=== PATIENT | female | born 1960 | race Caucasian/White ===

== ENCOUNTER 2016-06-16 15:27 | Emergency (ER) | payer BC ==
[2016-06-16 16:37] VITALS: BP 122/79
--- NOTE | 2016-06-16 16:57 | UC ---
Throat Pain/Nasal Marvin HPI - HPI Summary HPI Summary: 2 day history of progressive sinus pressure, headache, fatigue and myalgias. Slept all day, with fever earlier in the day. Long history of asthma, has used albuterol 4 times in the past 24 hours, last several hours ago. History in the past of sinusitis. - History of Current Complaint Chief Complaint: UCGeneralIllness Stated Complaint: SINUS/CHILLS/FEVER Time Seen by Provider: 06/16/16 16:42 Hx Obtained From: Patient Hx Last Menstrual Period: HYTERECTOMY 2014 Onset/Duration: Sudden Onset, Lasting Days - 2 Cough: Productive Associated Signs & Symptoms: Positive: Wheezing, Sinus Discomfort - Epiglottits Risk Factors Epiglottis Risk Factors: Negative - Allergies/Home Medications Allergies/Adverse Reactions: Allergies Allergy/AdvReac Type Severity Reaction Status Date / Time Soy Allergy Allergy Intermediate diff Verified 06/16/16 16:37 breathing Many foods, environmental Allergy Hives Uncoded 06/16/16 16:37 PMH/Surg Hx/FS Hx/Imm Hx Endocrine History Of: Denies: Diabetes, Thyroid Disease, Hyperthyroidism, Hypothyroidism, Dyslipidemia Cardiovascular History Of: Denies: Cardiac Disorders, Hypertension Respiratory History Of: Reports: Asthma Denies: COPD, Bronchitis, Pneumonia, Pulmonary Embolism GI/ History Of: Denies: Gastroesophageal Reflux, Ulcer, Gastrointestinal Bleed, Gall Bladder Disease, Kidney Stones, Diverticulitis, Renal Disease, Urosepsis Neurological History Of: Denies: TIA, CVA, Dementia, Seizures, Migraine Psychological History Of: Denies: Anxiety, Depression, Bipolar Disorder, Schizophrenia, Post Traumatic Stress Disorder Cancer History Of: Denies: Lung Cancer, Colorectal Cancer, Breast Cancer, Prostate Cancer, Cervical Cancer - Surgical History Surgical History: Yes Surgery Procedure, Year, and Place: T&A, varicose vein surgery. D&C x 2. Hysterectomy - Family History Known Family History: Positive: Unknown - paternal hx unknown., Diabetes, Other - mother of endometrial or ovarian cancer age 56 - Social History Occupation: Employed Full-time - accounting Lives: With Family - with partner who just had open heart surgery Alcohol Use: Weekly Alcohol Amount: 30 pack beers Substance Use Type: None Smoking Status (MU): Heavy Every Day Tobacco Smoker - in process of quitting, has decreased from 1 ppd in the past several weeks. Type: Cigarettes Amount Used/How Often: 2-3 packs a week Length of Time of Smoking/Using Tobacco: 36 yrs Have You Smoked in the Last Year: Yes When Did the Patient Quit Smoking/Using Tobacco: 05/13/14 Household Exposure Type: Cigarettes - Immunization History Most Recent Influenza Vaccination: [id number] Review of Systems Constitutional: Fever, Fatigue Skin: Negative Eyes: Negative ENT: Sore Throat, Nasal Discharge Respiratory: Cough Cardiovascular: Negative Gastrointestinal: Negative Genitourinary: Negative Motor: Negative Neurovascular: Negative Musculoskeletal: Negative Neurological: Negative Psychological: Negative All Other Systems Reviewed And Are Negative: Yes Physical Exam Triage Information Reviewed: Yes Appearance: Ill-Appearing Vital Signs: Initial Vital Signs Temp 97.1 F 06/16/16 16:32 Pulse 87 06/16/16 16:32 Resp 18 06/16/16 16:32 BP 122/79 06/16/16 16:32 Pulse Ox 99 06/16/16 16:32 Eye Exam: Normal ENT: Positive: Pharyngeal erythema, TMs normal Dental Exam: Normal Neck: Positive: Supple, Nontender, Enlarged Nodes @ - anterior cervical Respiratory: Positive: Decreased breath sounds - to both bases, Wheezing - lower lung jones, prolonged expiration Cardiovascular: Positive: RRR, No Murmur Musculoskeletal Exam: Normal Neurological: Positive: Alert Psychological Exam: Normal Skin Exam: Normal Throat Pain/Nasal Course/Dx - Course Course Of Treatment: azithromycin for treatment of sinusitis. - Differential Dx/Diagnosis Differential Diagnosis/HQI/PQRI: Laryngitis, Sinusitis, URI Provider Diagnoses: acute maxillary sinusitis. Discharge - Discharge Plan Condition: Stable Disposition: HOME Prescriptions: Azithromyxin KRISH (NF) [Z-Krish (Zithromax) 250 mg tabs #6] 2 tab PO .TODAY, THEN 1 DAILY #6 tab Patient Education Materials: Sinusitis (ED) Additional Instructions: continue albuterol as needed for wheezing. use course of zithromax for treatment of sinusitis. Continue efforts at smokestopping.
== END 2016-06-16 17:13 | disposition home or self-care (01) ==
LOC: UCCORT 15:27
DX: J01.00 Acute maxillary sinusitis, unspecified (principal); F10.99 Alcohol use, unspecified with unspecified alcohol-induced disorder; F17.210 Nicotine dependence, cigarettes, uncomplicated
CPT/HCPCS: 99212; G0463

== ENCOUNTER 2016-12-24 14:00 | Emergency (ER) | payer BC ==
[2016-12-24 16:50] VITALS: BP 143/94
--- NOTE | 2016-12-24 17:02 | UC ---
Throat Pain/Nasal Marvin HPI - HPI Summary HPI Summary: Fever, sinus congestion ans pain, sore throat and cough for the past 5 days - History of Current Complaint Chief Complaint: UCGeneralIllness Stated Complaint: SINUS Time Seen by Provider: 12/24/16 16:52 Hx Obtained From: Patient Hx Last Menstrual Period: HYTERECTOMY 2014 Onset/Duration: Sudden Onset, Lasting Days Severity: Moderate Associated Signs & Symptoms: Positive: Sinus Discomfort, Nasal Discharge, Fever - Allergies/Home Medications Allergies/Adverse Reactions: Allergies Allergy/AdvReac Type Severity Reaction Status Date / Time Soy Allergy Allergy Intermediate diff Verified 06/16/16 16:37 breathing Many foods, environmental Allergy Hives Uncoded 06/16/16 16:37 Home Medications: Home Medications Fluticasone Propionate (Nasal) [ Fluticasone Propionate] 50 mcg NA DAILY PRN 12/24/16 [History Confirmed 12/24/16] Umeclidin 62.5 MDI(NF) [Incruse ELLIPTA MDI (NF)] 1 inh INH BEDTIME 12/24/16 [ History Confirmed 12/24/16] PMH/Surg Hx/FS Hx/Imm Hx Previously Healthy: Yes - Surgical History Surgical History: Yes Surgery Procedure, Year, and Place: T&A, varicose vein surgery. D&C x 2. Hysterectomy - Family History Known Family History: Positive: Unknown - paternal hx unknown., Diabetes, Other - mother of endometrial or ovarian cancer age 56 - Social History Alcohol Use: Daily Alcohol Amount: 30 pack beers Substance Use Type: None Smoking Status (MU): Heavy Every Day Tobacco Smoker Type: Cigarettes Amount Used/How Often: 1/2 PPD Length of Time of Smoking/Using Tobacco: 36 yrs Have You Smoked in the Last Year: Yes When Did the Patient Quit Smoking/Using Tobacco: 05/13/14 Household Exposure Type: Cigarettes - Immunization History Most Recent Influenza Vaccination: [id number] Review of Systems Constitutional: Fever, Chills, Fatigue Skin: Negative Eyes: Negative ENT: Sore Throat, Ear Ache, Nasal Discharge, Sinus Congestion, Sinus Pain/ Tenderness Respiratory: Cough Cardiovascular: Negative Gastrointestinal: Negative Genitourinary: Negative Motor: Negative Neurovascular: Negative Musculoskeletal: Negative Neurological: Negative Psychological: Negative All Other Systems Reviewed And Are Negative: Yes Physical Exam Triage Information Reviewed: Yes Appearance: Well-Nourished, Ill-Appearing, Pain Distress Vital Signs: Initial Vital Signs Temp 100 F 12/24/16 16:45 Pulse 121 12/24/16 16:45 Resp 18 12/24/16 16:45 BP 143/94 12/24/16 16:45 Pulse Ox 96 12/24/16 16:45 Vital Signs Reviewed: Yes Eyes: Positive: Conjunctiva Inflamed ENT: Positive: Pharyngeal erythema, Nasal congestion, Nasal drainage, Tonsillar swelling, Tonsillar exudate Dental Exam: Normal Neck exam: Normal Neck: Positive: Supple, Nontender, No Lymphadenopathy Respiratory Exam: Normal Respiratory: Positive: Chest non-tender, Normal breath sounds, Wheezing, Inspiration Cardiovascular Exam: Normal Cardiovascular: Positive: No Murmur, Pulses Normal, Tachycardia Abdominal Exam: Normal Abdomen Description: Positive: Nontender, No Organomegaly, Soft Bowel Sounds: Positive: Present Musculoskeletal Exam: Normal Musculoskeletal: Positive: Strength Intact, ROM Intact, No Edema Neurological Exam: Normal Neurological: Positive: Alert, Muscle Tone Normal Psychological Exam: Normal Skin Exam: Normal Throat Pain/Nasal Course/Dx - Course Course Of Treatment: hx obtained, exam performed ,meds reviewed, treaed for sinusitis - Differential Dx/Diagnosis Differential Diagnosis/HQI/PQRI: Pharyngitis, Sinusitis Provider Diagnoses: Sinusitis Discharge - Discharge Plan Condition: Stable Disposition: HOME Prescriptions: Azithromycin TAB* [Zithromax TAB (Z-KRISH) 250 mg #6 tabs] 2 tab PO .TODAY, THEN 1 DAILY #1 krish predniSONE TAB* [Deltasone TAB*] 40 mg PO DAILY #10 tab Patient Education Materials: Sinusitis (ED) Referrals: Pierre Blank MD [Medical Doctor] - Additional Instructions: 1. take the medication as prescribed. 2. Increase the fluid intake and get plenty of rest 3. Motrin and tylenol for pain and fever
== END 2016-12-24 17:16 | disposition home or self-care (01) ==
LOC: UCCORT 14:00
DX: J32.9 Chronic sinusitis, unspecified (principal)
CPT/HCPCS: 99212; G0463

== ENCOUNTER 2017-05-25 09:06 | Emergency (ER) | payer BC ==
[2017-05-25 10:52] VITALS: BP 137/78
--- NOTE | 2017-05-25 10:53 | UC ---
Throat Pain/Nasal Marvin HPI - HPI Summary HPI Summary: 56 year old female with sinus pressure and congestion . Has history of bronchitis and does smoke . she is asking for patches to quit smoking. mild wheeze and coughing. using albuterol at home and mild increase in use and has used 2 times in the past 24 hours. no CP. no syncope or vision changes. no body aches and states not having the flu - History of Current Complaint Stated Complaint: SINUS/CHEST CONGESTION FEVER CHILLS Time Seen by Provider: 05/25/17 10:36 Hx Obtained From: Patient Hx Last Menstrual Period: HYTERECTOMY 2014 Onset/Duration: Gradual Onset Cough: Productive Associated Signs & Symptoms: Positive: Wheezing - Allergies/Home Medications Allergies/Adverse Reactions: Allergies Allergy/AdvReac Type Severity Reaction Status Date / Time Soy Allergy Allergy Intermediate diff Verified 05/25/17 10:36 breathing Many foods, environmental Allergy Hives Uncoded 05/25/17 10:36 PMH/Surg Hx/FS Hx/Imm Hx Previously Healthy: Yes Respiratory History: COPD - Surgical History Surgical History: Yes Surgery Procedure, Year, and Place: T&A, varicose vein surgery. D&C x 2. Hysterectomy - Family History Known Family History: Positive: Unknown - paternal hx unknown., Diabetes, Other - mother of endometrial or ovarian cancer age 56 - Social History Alcohol Use: Daily Alcohol Amount: 30 pack beers Substance Use Type: None Smoking Status (MU): Heavy Every Day Tobacco Smoker Type: Cigarettes Amount Used/How Often: 1/2 PPD Length of Time of Smoking/Using Tobacco: 36 yrs Have You Smoked in the Last Year: Yes When Did the Patient Quit Smoking/Using Tobacco: 05/13/14 Household Exposure Type: Cigarettes Cessation Counseling: Patient Advised to Stop - Immunization History Most Recent Influenza Vaccination: [id number] Review of Systems Constitutional: Fatigue ENT: Sore Throat, Nasal Discharge, Sinus Congestion, Sinus Pain/Tenderness Respiratory: Cough Is Patient Immunocompromised?: No All Other Systems Reviewed And Are Negative: Yes Physical Exam Triage Information Reviewed: Yes Appearance: Well-Appearing, No Pain Distress, Well-Nourished Vital Signs Reviewed: Yes Eye Exam: Normal ENT Exam: Normal Respiratory Exam: Normal Respiratory: Positive: Chest non-tender, No respiratory distress, No accessory muscle use, Wheezing - LLL and RUL with expiration. Negative: Respiratory distress Cardiovascular Exam: Normal Neurological Exam: Normal Psychological Exam: Normal Skin Exam: Normal Throat Pain/Nasal Course/Dx - Course Course Of Treatment: advised to stop smoking. mild wheeze, do not think need steroid at this time. start doxy to shorten course of Sx. go to ED if Sx not improved - Differential Dx/Diagnosis Differential Diagnosis/HQI/PQRI: Pharyngitis, Sinusitis, URI Provider Diagnoses: COPD exacerbation Discharge - Discharge Plan Condition: Good Disposition: HOME Prescriptions: Doxycycline (Monohydrate) [Doxycycline Monohydrate] 100 mg PO BID #20 cap Ibuprofen TAB* [Motrin TAB* 600 MG] 600 mg PO Q6H PRN #60 tab PRN Reason: Pain Nicotine PATCH 21 MG/24 HR* 21 mg TRANSDERM DAILY #30 patch Patient Education Materials: Acute Bronchitis (ED), COPD (Chronic Obstructive Pulmonary Disease) (ED) Referrals: Cary Dietz PA [Primary Care Provider] - 4 Days
== END 2017-05-25 11:20 | disposition home or self-care (01) ==
LOC: UCCORT 09:06
DX: J44.1 Chronic obstructive pulmonary disease with (acute) exacerbation (principal); F17.210 Nicotine dependence, cigarettes, uncomplicated
CPT/HCPCS: 99211; G0463

== ENCOUNTER 2017-11-21 10:22 | Emergency (ER) | payer BC ==
[2017-11-21 10:58] VITALS: BP 115/56
--- NOTE | 2017-11-21 11:06 | UC ---
Lower Extremity/Ankle HPI - HPI Summary HPI Summary: 57 y/o female presents to the urgent care c/o R ankle pain and swelling s/p twisting ankle while coming out of the bathroom this morning at 0600AM. Pt states she can walk w/ limping. Pain is 6/10. She took Ibuprofen 400mg PO to alleviate symptoms. Pt denies numbness or tingling sensation, calf pain, SOB, chest pain, abdominal pain, N/V/D. Pt w/ Hx of Varicose veins and recently had injections on 11/07/2017. - History of Current Complaint Chief Complaint: UCLowerExtremity Stated Complaint: RT ANKLE INJURY Time Seen by Provider: 11/21/17 10:59 Hx Obtained From: Patient Hx Last Menstrual Period: HYTERECTOMY 2014 Onset/Duration: Sudden Onset, Lasting Hours - 4hrs Severity Initially: Moderate Severity Currently: Moderate Pain Intensity: 6 Pain Scale Used: 0-10 Numeric Aggravating Factor(s): Standing, Ambulation Alleviating Factor(s): Rest, Elevation, OTC Meds Able to Bear Weight: Yes - Risk Factors Gout Risk Factors: Negative DVT Risk Factors: Negative Septic Arthritis Risk Factor: Negative - Allergies/Home Medications Allergies/Adverse Reactions: Allergies Allergy/AdvReac Type Severity Reaction Status Date / Time soy Allergy Difficulty Verified 11/21/17 10:50 Breathing Many foods, environmental Allergy Hives Uncoded 05/25/17 10:36 PMH/Surg Hx/FS Hx/Imm Hx Previously Healthy: Yes Respiratory History: Asthma - Surgical History Surgical History: Yes Surgery Procedure, Year, and Place: T&A, varicose vein surgery. D&C x 2. Hysterectomy - Family History Known Family History: Positive: Unknown - paternal hx unknown., Diabetes Family History: mother of endometrial or ovarian cancer age 56 - Social History Occupation: Employed Full-time Lives: With Family Alcohol Use: Weekly Alcohol Amount: 30 pack beers weekly Substance Use Type: None Smoking Status (MU): Heavy Every Day Tobacco Smoker Type: Cigarettes Amount Used/How Often: 1/2 PPD Length of Time of Smoking/Using Tobacco: 36 yrs Have You Smoked in the Last Year: Yes When Did the Patient Quit Smoking/Using Tobacco: 05/13/14 Household Exposure Type: Cigarettes - Immunization History Most Recent Influenza Vaccination: [id number] Review of Systems Constitutional: Negative Skin: Negative Eyes: Negative ENT: Negative Respiratory: Negative Cardiovascular: Negative Gastrointestinal: Negative Genitourinary: Negative Motor: Negative Neurovascular: Negative Musculoskeletal: Decreased ROM - RT ankle, Other: - RT ankle pain s/p injury Neurological: Negative Psychological: Negative Is Patient Immunocompromised?: No All Other Systems Reviewed And Are Negative: Yes Physical Exam - Summary Physical Exam Summary: Vital Signs Reviewed: Yes General: well developed, well nourished female, sitting in the examining table w /o any apparent distress Eyes: Positive: Conjunctiva Clear - PERRLA, EOMI, ENT: Positive: Normal ENT inspection, Hearing grossly normal, Pharynx normal, TMs normal Neck: Positive: Supple, Nontender, No Lymphadenopathy Respiratory: Positive: Chest non-tender, Lungs clear, Normal breath sounds, No respiratory distress Cardiovascular: Positive: RRR, No Murmur, Pulses Normal, Brisk Capillary Refill Abdomen Description: Positive: Nontender, No Organomegaly, Soft. Negative: CVA Tenderness (R), CVA Tenderness (L) Bowel Sounds: Positive: Present Musculoskeletal: - Ankle: Pt is able to bear weight and ambulate w/ limping. The R ankle is without obvious asymmetry or deformity when compared to the L ankle. Decreased ROM due to pain. Moderate swelling at the lateral malleolus, with tenderness to palpation. No ecchymosis or bruising observed. No tenderness to palpation over the medial malleolus , no swelling observed. Talar tilt test is negative for ligament laxity to valgus or varus stress. Negative anterior drawer. Peroneal nerve is intact with strong eversion and plantar flexion. Positive sensation over the Rt foot and Rt ankle, positive pulses, capillary refill intact Neurological Exam: Normal Psychological Exam: Normal Skin: warm and dry Triage Information Reviewed: Yes Vital Signs: Initial Vital Signs Temp 99 F 11/21/17 10:52 Pulse 83 11/21/17 10:52 Resp 16 11/21/17 10:52 BP 115/56 11/21/17 10:52 Pulse Ox 98 11/21/17 10:52 Lower Extremity Course/Dx - Course Course Of Treatment: 57 y/o female presents to the urgent care c/o R ankle pain and swelling s/p twisting ankle while coming out of the bathroom this morning at 0600AM. Pt states she can walk w/ limping. Pain is 6/10. She took Ibuprofen 400mg PO to alleviate symptoms. Pt denies numbness or tingling sensation, calf pain, SOB, chest pain, abdominal pain, N/V/D. Pt w/ Hx of Varicose veins and recently had injections on 11/07/2017.Hx obtained. Rt ankle X -ray ordered, Impression: Mild Soft tissue swelling on lateral malleolus observed, no acute fracture. Pt most likely with a RT ankle Sprain. Pt immobilized with gel ankle splint and Ramo bandage, Rx Naproxen PO to decrease swelling and pain. Pt advised RICE, take Ibuprofen PO for pain and to f/u with PCP on orthopedic Dr Shell in 1 week if not improvement of symptoms for further treatment. Parents and Pt understood and agreed and left the clinic ambulating. - Differential Dx/Diagnosis Differential Diagnosis/HQI/PQRI: Contusion, Fracture (Closed), Sprain, Strain, Tendonitis Provider Diagnoses: 1- Rt ankle pain s/p injury. 2- Rt ankle sprain Discharge - Sign-Out/Discharge Documenting (check all that apply): Patient Departure - D/c home - Discharge Plan Condition: Stable Disposition: HOME Prescriptions: Naproxen TAB* [Naprosyn 250 mg TAB*] 250 mg PO Q8H PRN #30 tab PRN Reason: Pain Patient Education Materials: Ankle Sprain (ED) Referrals: Daphne Shell MD [Medical Doctor] - 1 Week Cary Dietz PA [Primary Care Provider] - 1 Week Additional Instructions: 1-Please take medications as directed after meals to alleviate pain and swelling. 2-Please apply ice, keep your ankle immobilized with the splint. Avoid weight bearing using your cane 3- Please f/u with Orthopedic Dr Shell or your PCP in 1 week is not improvement of symptoms for further evaluation and treatment. - Billing Disposition and Condition Condition: STABLE Disposition: Home
--- NOTE | 2017-11-21 11:29 | RAD ---
INDICATION: Right ankle pain COMPARISON: November 14, 2012 TECHNIQUE: AP, lateral, and oblique views were obtained. FINDINGS: There is no acute fracture. Ankle mortise is intact. There is mild lateral soft tissue swelling. IMPRESSION: MILD LATERAL SOFT TISSUE SWELLING.
== END 2017-11-21 11:44 | disposition home or self-care (01) ==
LOC: UCCORT 10:22
DX: S93.401A Sprain of unspecified ligament of right ankle, initial encounter (principal); X50.1XXA Overexertion from prolonged static or awkward postures, initial encounter; Y93.01 Activity, walking, marching and hiking; Y92.002 Bathroom of unspecified non-institutional (private) residence as the place of occurrence of the external cause; F17.210 Nicotine dependence, cigarettes, uncomplicated
CPT/HCPCS: 99213; G0463

== ENCOUNTER 2018-01-17 13:46 | Emergency (ER) | payer BC ==
[2018-01-17 15:14] VITALS: BP 135/84
--- NOTE | 2018-01-17 15:51 | UC ---
Head Injury HPI - HPI Summary HPI Summary: 57 YO FEMALE who comes to clinic today with a chief complaint of fall with head and rib injuries. She was carrying a can of paint up some stairs when she tripped and fell striking her head sternum and left ribs on the stairs. The head was a moderate pain initially. The pain has decreased since the accident. No loss of consciousness. No vision changes no nausea. She is not on blood thinners. Also has complaint of sternum and left rib pain. This is worse with inspiration and coughing. She does not feel short of breath. No complaint of other injuries. - History Of Current Complaint Chief Complaint: UCGeneralIllness Stated Complaint: S/P FALL RIB PAIN Time Seen by Provider: 01/17/18 15:41 Hx Last Menstrual Period: HYTERECTOMY 2014 Pain Intensity: 7 - Allergies/Home Medications Allergies/Adverse Reactions: Allergies Allergy/AdvReac Type Severity Reaction Status Date / Time soy Allergy Difficulty Verified 01/17/18 15:10 Breathing Many foods, environmental Allergy Hives Uncoded 01/17/18 15:10 Home Medications: Home Medications Ibuprofen TAB* [Advil TAB*] 400 mg PO Q6H PRN 01/17/18 [History Confirmed ] PMH/Surg Hx/FS Hx/Imm Hx Respiratory History: Asthma - Surgical History Surgical History: Yes Surgery Procedure, Year, and Place: T&A, varicose vein surgery. D&C x 2. Hysterectomy - Family History Known Family History: Positive: Unknown - paternal hx unknown., Diabetes, Other - mother of endometrial or ovarian cancer age 56 Family History: mother of endometrial or ovarian cancer age 56 - Social History Alcohol Use: Weekly Alcohol Amount: 30 pack beers weekly Substance Use Type: None Smoking Status (MU): Heavy Every Day Tobacco Smoker Type: Cigarettes Amount Used/How Often: 1/2 PPD Length of Time of Smoking/Using Tobacco: 36 yrs Have You Smoked in the Last Year: Yes When Did the Patient Quit Smoking/Using Tobacco: 05/13/14 Household Exposure Type: Cigarettes - Immunization History Most Recent Influenza Vaccination: 7149-1205 Review of Systems Constitutional: Negative Skin: Negative Eyes: Negative ENT: Negative Respiratory: Other - Pain with inspiration Cardiovascular: Chest Pain - Left chest and sternum pain with inspiration Gastrointestinal: Negative Genitourinary: Negative Motor: Negative Neurovascular: Negative Musculoskeletal: Negative Neurological: Negative Psychological: Negative Is Patient Immunocompromised?: No All Other Systems Reviewed And Are Negative: Yes Physical Exam Triage Information Reviewed: Yes Appearance: Well-Appearing, Pain Distress - mild Vital Signs: Initial Vital Signs Temp 99.9 F 01/17/18 15:05 Pulse 98 01/17/18 15:05 Resp 16 01/17/18 15:05 BP 135/84 01/17/18 15:05 Pulse Ox 97 01/17/18 15:05 Eye Exam: Normal ENT: Positive: Normal ENT inspection, TMs normal Neck exam: Normal Neck: Positive: Supple Respiratory Exam: Normal Respiratory: Positive: Lungs clear, Normal breath sounds, No respiratory distress, Other: - Left lower ribs and anterior sternum tender to palpation Cardiovascular: Positive: RRR Abdominal Exam: Normal Abdomen Description: Positive: Nontender Bowel Sounds: Positive: Present Musculoskeletal: Positive: Strength Intact, ROM Intact Neurological Exam: Normal Neurological: Positive: Alert Psychological Exam: Normal Skin Exam: Normal Head Injury Course/Dx - Course Course Of Treatment: Order Information: CT BRAIN WO. Accession Number: [id number]. CPT: 44158. Indication: Fall, head injury. CT of the brain was performed without IV contrast. Ventricular structures are midline. No midline shift is noted. The extra-axial spaces are. unremarkable. There is no evidence of intracranial mass or hemorrhage. No other high or. low density lesions are identified. Mastoid air cells and paranasal sinuses are otherwise unremarkable. IMPRESSION: No intracranial mass or hemorrhage is noted. . <Electronically signed by Nancy Collado MD in [facility]> 01/17/18 1723. Order Information: RIBS LT UNI W/PA CH MIN 3 VWS. Accession Number: [id number]. CPT: 13179. Indication: Left rib pain and sternal pain. 3 views of left ribs and a dual energy PA view of the chest demonstrates no definite. fracture of the left RIBS. Lung jones appear clear. No pneumothorax is noted on the dual. energy PA view. IMPRESSION: No fracture of the left ribs is noted. No pneumothorax is noted. . <Electronically signed by Nancy Collado MD in [facility]> 01/17/18 3363. Order Information: CT SPINE CERVICAL W/O. Accession Number: [id number]. CPT: 88818. Indication: Fall, neck injury. CT of the cervical spine was obtained in the axial plane. Sagittal and coronal. reconstructed images were obtained. The skull base demonstrates no evidence of fracture. Mastoid air cells are well aerated. The C1 ring is intact with no evidence of fracture. The vertebral bodies appear normal in height. No compression fracture is noted. At C2-C3 there is no disc protrusion. No central or foraminal stenosis is noted. At C3-C4 spondylitic ridge is noted. There is left uncovertebral joint hypertrophy. No. central or foraminal stenosis is noted. At C3-C4-C5 there is no fracture noted. There is left facet arthropathy noted. No central. or foraminal stenosis is noted. At C5-C6 degenerative disc disease with spondylytic ridge narrows both foramen. No. fracture is identified. At C6-C7 degenerative disc disease with spondylytic ridge and bilateral uncovertebral. joint hypertrophy is noted. No other fractures are noted. The lung apices are unremarkable. IMPRESSION: No fracture of the cervical spine is noted with multilevel degenerative disc. disease. ___ . <Electronically signed by Nancy Collado MD in [facility]> 01/17/18 0412X-ray results discussed with patient. Follow up primary medical doctor reevaluation sooner if worse. - Differential Dx/Diagnosis Provider Diagnoses: HEAD INJURY. CHEST/RIB CONTUSION Discharge - Sign-Out/Discharge Documenting (check all that apply): Patient Departure All imaging exams completed and their final reports reviewed: Yes - Discharge Plan Condition: Stable Disposition: HOME Prescriptions: Ibuprofen TAB* [Motrin TAB* 600 MG] 600 mg PO Q6H PRN #30 tab PRN Reason: Pain Patient Education Materials: Head Injury (ED), Rib Contusion (ED) Referrals: Cary Dietz PA [Primary Care Provider] - Additional Instructions: FOLLOW UP WITH YOUR DOCTOR. GET RECHECKED FOR ANY WORSENING OF YOUR CONDITION OR QUESTIONS OR CONCERNS. - Billing Disposition and Condition Condition: STABLE Disposition: Home
--- NOTE | 2018-01-17 17:26 | RAD ---
Indication: Fall, head injury CT of the brain was performed without IV contrast. Ventricular structures are midline. No midline shift is noted. The extra-axial spaces are unremarkable. There is no evidence of intracranial mass or hemorrhage. No other high or low density lesions are identified. Mastoid air cells and paranasal sinuses are otherwise unremarkable. IMPRESSION: No intracranial mass or hemorrhage is noted.
--- NOTE | 2018-01-17 17:28 | RAD ---
Indication: Fall, neck injury. CT of the cervical spine was obtained in the axial plane. Sagittal and coronal reconstructed images were obtained. The skull base demonstrates no evidence of fracture. Mastoid air cells are well aerated. The C1 ring is intact with no evidence of fracture. The vertebral bodies appear normal in height. No compression fracture is noted. At C2-C3 there is no disc protrusion. No central or foraminal stenosis is noted. At C3-C4 spondylitic ridge is noted. There is left uncovertebral joint hypertrophy. No central or foraminal stenosis is noted. At C3-C4-C5 there is no fracture noted. There is left facet arthropathy noted. No central or foraminal stenosis is noted. At C5-C6 degenerative disc disease with spondylytic ridge narrows both foramen. No fracture is identified. At C6-C7 degenerative disc disease with spondylytic ridge and bilateral uncovertebral joint hypertrophy is noted. No other fractures are noted. The lung apices are unremarkable. IMPRESSION: No fracture of the cervical spine is noted with multilevel degenerative disc disease.
--- NOTE | 2018-01-17 17:47 | RAD ---
Indication: Left rib pain and sternal pain. 3 views of left ribs and a dual energy PA view of the chest demonstrates no definite fracture of the left RIBS. Lung jones appear clear. No pneumothorax is noted on the dual energy PA view. IMPRESSION: No fracture of the left ribs is noted. No pneumothorax is noted.
== END 2018-01-17 18:16 | disposition home or self-care (01) ==
LOC: UCCORT 13:46
DX: S09.90XA Unspecified injury of head, initial encounter (principal); S20.212A Contusion of left front wall of thorax, initial encounter; W01.198A Fall on same level from slipping, tripping and stumbling with subsequent striking against other object, initial encounter; Y93.01 Activity, walking, marching and hiking; Y92.9 Unspecified place or not applicable; Z87.891 Personal history of nicotine dependence
CPT/HCPCS: 70450; 72125; 99212; G0463

== ENCOUNTER 2018-01-21 20:38 | Emergency (ER) | payer BC ==
[2018-01-21 21:21] VITALS: BP 146/96
--- NOTE | 2018-01-21 21:37 | UC ---
Truncal Trauma HPI - HPI Summary HPI Summary: Fell 01/17/18 hit head and ribs. Negative work up. Ongoing left sided rib pain. Saw blood in the urine. - History Of Current Complaint Chief Complaint: UCChestPain Stated Complaint: LEFT SIDE PAIN S/P FALL - RECHECK Hx Obtained From: Patient Hx Last Menstrual Period: HYTERECTOMY 2015 ?: No Onset/Duration: Sudden Onset - 01/17/18 Onset Of Pain: Immediate Severity Initially: Severe Severity Currently: Moderate Pain Intensity: 6 Mechanism Of Injury: Blunt Trauma, Fall From A Standing Position Aggravating Factor(s): Deep Breathing Alleviating factor(s): Rest, Shallow Breathing Associated Signs And Symptoms: Positive: Chest Pain - Allergies/Home Medications Allergies/Adverse Reactions: Allergies Allergy/AdvReac Type Severity Reaction Status Date / Time soy Allergy Difficulty Verified 01/21/18 21:22 Breathing Many foods, environmental Allergy Hives Uncoded 01/21/18 21:22 PMH/Surg Hx/FS Hx/Imm Hx Respiratory History: Asthma - Surgical History Surgical History: Yes Surgery Procedure, Year, and Place: T&A, varicose vein surgery. D&C x 2. Hysterectomy - Family History Known Family History: Positive: Unknown - paternal hx unknown., Diabetes, Other - mother of endometrial or ovarian cancer age 56 Family History: mother of endometrial or ovarian cancer age 56 - Social History Occupation: Employed Full-time Lives: With Family Alcohol Use: Weekly Alcohol Amount: 30 pack beers weekly Substance Use Type: None Smoking Status (MU): Heavy Every Day Tobacco Smoker Type: Cigarettes Amount Used/How Often: 1/2 PPD Length of Time of Smoking/Using Tobacco: 36 yrs Have You Smoked in the Last Year: Yes When Did the Patient Quit Smoking/Using Tobacco: 05/13/14 Household Exposure Type: Cigarettes - Immunization History Most Recent Influenza Vaccination: [id number] Review of Systems Skin: Bruising Cardiovascular: Chest Pain Psychological: Depressed Is Patient Immunocompromised?: No All Other Systems Reviewed And Are Negative: Yes Physical Exam Triage Information Reviewed: Yes Appearance: Well-Appearing, Well-Nourished, Pain Distress Vital Signs: Initial Vital Signs Temp 98.9 F 01/21/18 21:08 Pulse 78 01/21/18 21:08 Resp 18 01/21/18 21:08 BP 146/96 01/21/18 21:08 Pulse Ox 98 01/21/18 21:08 Vital Signs Reviewed: Yes Eyes: Positive: Conjunctiva Clear, Other: - bruising around the left eye. ENT: Positive: Pharynx normal, TMs normal Neck exam: Normal Respiratory: Positive: Lungs clear. Negative: Chest non-tender - tender left anterior chest wall. Cardiovascular: Positive: RRR, No Murmur Bowel Sounds: Positive: Present Musculoskeletal Exam: Normal Neurological Exam: Normal Psychological Exam: Normal Skin: Positive: Other - bruising right upper back as well. Truncal Trauma Course/Dx - Differential Dx/Diagnosis Differential Diagnosis/HQI/PQRI: Cardiac Contusion, Chest Wall Contusion, Rib Fracture Provider Diagnoses: Chest contusion. Gross hematuria Discharge - Sign-Out/Discharge Documenting (check all that apply): Patient Departure All imaging exams completed and their final reports reviewed: No Studies - Discharge Plan Condition: Stable Disposition: HOME Patient Education Materials: Rib Contusion (ED), Hematuria (ED) Referrals: Cary Dietz PA [Primary Care Provider] - Additional Instructions: Smoking Cessation Tricks. 1. Cut down by 1 cigarette per day every 2-3 days. Write the number of smokes for that day on the calendar. 2. Identify triggers to smoking: after meals, on the phone, in the car, with coffee, on breaks at work, etc. 3. Formulate a plan with a behavior to replace the smoking. Fireballs in the car , doodle pad on the phone, flavored creamer for the coffee, go for a walk after a meal or on break at work. 4. For stress smokes do deep breathing relaxation. Breath deep in through the nose hold the breath in for a few seconds then breath out slowly through the mouth. - Billing Disposition and Condition Condition: STABLE Disposition: Home
== END 2018-01-21 21:51 | disposition home or self-care (01) ==
LOC: UCCORT 20:38
DX: S20.212A Contusion of left front wall of thorax, initial encounter (principal); W19.XXXA Unspecified fall, initial encounter; Y92.9 Unspecified place or not applicable; R31.0 Gross hematuria; F17.210 Nicotine dependence, cigarettes, uncomplicated
CPT/HCPCS: 81003; 99211; G0463